=== PATIENT | male | born 1955 | race Caucasian/White ===

== ENCOUNTER 2020-04-29 14:40 | Emergency (ER) | payer MEDICARE, OTHER ==
[~2020-04-29] VITALS: Ht 182.9 cm; Wt 113.0 kg
--- NOTE | 2020-04-29 15:27 | RAD ---
EXAM: CHEST ONE VIEW. HISTORY: Syncope. COMPARISON: 01/10/2009. FINDINGS: A frontal view of the chest is obtained. There are no confluent infiltrates. There is no pneumothorax or pleural effusion. The heart is not en larged. Suture anchors are noted in the right humeral head. IMPRESSION: 1. No confluent infiltrates. Electronically signed by: Vivek Mahan MD (04/29/2020 3:24 PM) [id number]
[2020-04-29 15:29] LABS: BASO % 1 % (0-3); EOS # 0.2 x10^3/uL (0.0-0.7); EOS % 6 % (0-3); HEMATOCRIT 41.1 % (39.0-53.0); HEMOGLOBIN 13.4 g/dL (13.0-17.5); LYMPH # 0.8 x10^3/uL (1.0-4.8); LYMPH % 23 % (24-48); MEAN CORPUSCULAR HEMOGLOBIN 30 pg (25-35); MEAN CORPUSCULAR HGB CONC 33 g/dL (31-37); MEAN CORPUSCULAR VOLUME 92 fL (79-100); MONO # 0.6 x10^3/uL (0.0-1.1); MONO % 17 % (0-9); NEUT # 1.9 x10^3uL (1.8-7.7); NEUT % 53 % (31-73); PLATELET COUNT 228 x10^3/uL (140-400); RED BLOOD COUNT 4.47 x10^6/uL (4.30-5.70); RED CELL DISTRIBUTION WIDTH 14.3 % (11.5-14.5); WHITE BLOOD COUNT 3.5 x10^3/uL (4.0-11.0)
[2020-04-29 15:31] VITALS: BP 144/73
[2020-04-29 15:34] LABS: GFR 74.8
--- NOTE | 2020-04-29 15:53 | RAD ---
EXAMINATION: CT HEAD AND C-SPINE WO CLINICAL HISTORY: Syncope, fall, on blood thinners TECHNIQUE: Serial axial images without IV contrast were obtained from the vertex to the foramen magnum. CT of the cervical spine without IV contrast. Spiral, high resolution axial images were obtained from the skull base to the cervicothoracic junction with sagittal and coronal planar reconstructions. CT Dose Reduction Employed: One or more of the following individualized dose reduction techniques wer e utilized for this examination: 1. Automated exposure control 2. Adjustment of the mA and/or kV ac cording to patient size 3. Use of iterative reconstruction technique. COMPARISON: None FINDINGS: BRAIN: Acute Change: No evidence of an acute contusion or other acute parenchymal process. Hemorrhage: No evidence of acute intracranial hemorrhage. Mass Lesion/Mass Effect: No evidence of intracranial mass or extraaxial fluid collection. No signific ant mass effect. Chronic Change: None apparent. Atherosclerotic calcification of the bilateral carotid siphons. Parenchyma: No significant volume loss. Parenchyma otherwise within normal limits for age. Ventricles: Ventricles within normal limits for age. Paranasal Sinuses and Skull Base: Changes compatible with chronic right maxillary sinusitis, incomple tely visualized. Mild left maxillary mucoperiosteal thickening. No evidence of acute calvarial fractu re. C-SPINE: Normal anatomic alignment. No evidence of acute fracture or spondylolisthesis. Multilevel degenerative disc disease, greatest at C5-6 and C6-7. Multilevel moderate to severe facet arthropathy. Left greater than right multilevel moderate to severe neural foraminal narrowing, greate st at C2-3 on the right and C3-4 and C4-5 on the left. No evidence of significant osseous spinal sten osis. No prevertebral soft tissue swelling. IMPRESSION: No evidence of acute intracranial abnormality. No evidence of acute osseous abnormality involving the cervical spine. Multilevel cervical degenerative disc disease, facet arthropathy, and neural foraminal narrowing as d escribed. Electronically signed by: Frank Alvarado DO (04/29/2020 3:51 PM) [id number]
[2020-04-29 15:54] LABS: POTASSIUM 5.4 mmol/L (3.5-5.1)
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
--- NOTE | 2020-04-29 16:17 | EKG ---
[address] [address] Test Date: 2020-04-29 Test Time: 15:22:10 Pat Name: CYN GR Department: Room: Gender: M High [employer] Boiler: MCKINLEY : 1955 Requested By: JEANNE LEON Order Number: [id number] Reading MD: Measurements Intervals [place] Rate: 75 P: 35 MA: 210 QRS: -8 QRSD: 126 T: 123 QT: 418 QTc: 470 Interpretive Statements SINUS RHYTHM LEFT ATRIAL ABNORMALITY LEFTWARD AXIS NON SPECIFIC INTRAVENTRICULAR BLOCK ABNORMAL ECG RI6.02 No previous ECG available for comparison
[2020-04-29 17:17] LABS: BILIRUBIN,URINE NEG (NEG); CLARITY,URINE CLOUDY; COLOR,URINE YELLOW; GLUCOSE,URINE NEG (NEG)
[2020-04-29 17:18] LABS: NITRITE,URINE NEG (NEG); UROBILINOGEN,URINE 0.2 mg/dL (0.2 mg/dL)
[2020-04-29 17:19] LABS: BACTERIA,URINE FEW /HPF (0-FEW); RBC,URINE >40 /HPF (0-2); SQUAMOUS EPITHELIAL CELL,UR OCC /LPF
== END 2020-04-29 17:35 ==
LOC: ER 14:40
DX: S06.9X9A Unspecified intracranial injury with loss of consciousness of unspecified duration, initial encounter (principal); S51.011A Laceration without foreign body of right elbow, initial encounter; W22.01XA Walked into wall, initial encounter; Y93.89 Activity, other specified; Y92.89 Other specified places as the place of occurrence of the external cause; Y99.8 Other external cause status
CPT/HCPCS: 36415; 70450; 71045; 72125; 80048; 81001; 84484; 85025; 85610; 85730; 87086; 93005; 96374; 99285; J2060

== ENCOUNTER 2020-05-14 13:42 | Emergency (ER) | payer MEDICARE, OTHER ==
[~2020-05-14] VITALS: Ht 182.9 cm; Wt 113.0 kg
[2020-05-14] MEDS ORDERED: LIDOCAINE 2%/EPI 1:100,000 20 ML VIAL. IJ ONE (14:00)
[2020-05-14] MEDS ORDERED: HYDROcodone/APAP 5/325MG 1 TAB TABLET PO ONE (14:00)
--- NOTE | 2020-05-14 14:57 | RAD ---
Study: 1. XR LT TIBIA + FIBULA 2. XR KNEE 4 VIEWS WITH PATELLA_RT Indication: Laceration. Comparison: None. Findings: Right knee: Dorsal defect of the patella incidentally noted. Mild medial femorotibial compartment joint space miguel rowing. Patellar enthesophytes and small osteophytes. The patella remains normally located. Several l oose bodies at the suprapatellar recess. Heterogeneity along the anterior aspect of the patellar tendon as seen on the lateral view. Left tibia/fibula: Intact total knee arthroplasty. No acute tibia or fibula fracture is identified. Slight cortical regu larity along the dorsal aspect of the proximal fibular diaphysis appears chronic. Chronic foci of ossification at the knee injecting along the femoral tibial joint line and at the sup rapatellar recess. Vascular calcifications. Degenerative changes at the ankle. Plantar calcaneal spur . No retained radiopaque foreign body. Impression: Right knee: 1. No acute osseous abnormality. 2. Subtle heterogeneity along the anterior portion of the mid to lower patellar tendon could relate t o reported laceration. No patellar malpositioning to suggest full-thickness disruption. 3. Degenerative findings as above. Left tibia/fibula: 1. No acute osseous abnormality. 2. Degenerative findings as above. Electronically signed by: KEENA WALTER MD (05/14/2020 2:54 PM) [facility]
--- NOTE | 2020-05-14 15:08 | PHYS DOC ---
Past History Past Medical History: Cancer, Other Additional Past Medical Histor: Prostate CA, s/p prostatectomy. Abdominal Aortic Aneurysm Alcohol Use: Rarely Adult General Chief Complaint Chief Complaint: LOWEREXTREMITY INJURY HPI HPI Patient is a 64-year-old male patient presenting to the ED today with right knee laceration and left harman laceration. Patient states he was cutting a tree to build a fence post when a tree branch kicked back and the chainsaw he was using cut him. Review of Systems Review of Systems Constitutional: Denies fever or chills [] Musculoskeletal: Denies back pain or joint pain [] Integument: Reports laceration to the right knee and left harman Neurologic: Denies headache, focal weakness or sensory changes [] All other systems were reviewed and found to be within normal limits, except as documented in this note. Current Medications Current Medications Current Medications Medications (Trade) Dose Ordered Sig/Saul Start Time Stop Time Status Last Admin Dose Admin Acetaminophen/ Hydrocodone Bitart (Lortab 5/325) 2 tab 1X ONCE 05/14/20 14:00 05/14/20 14:01 DC 05/14/20 14:31 2 TAB Lidocaine/ Epinephrine (Xylocaine 2%-Epi 1:100,000) 40 ml 1X ONCE 05/14/20 14:00 05/14/20 14:01 DC Allergies Allergies Allergies Coded Allergies Type Severity Reaction Last Updated Verified No Known Drug Allergies 04/29/20 No Physical Exam Physical Exam Constitutional: Well developed, well nourished, no acute distress, non-toxic appearance. [] Skin: Right anterior knee over the patella has a laceration approximately 5 x 0.3 cm. There is no obvious tendon involvement. The patella is not visible. Patient able to move the right knee including flexion and extension. Patient able to flex and extend the right toes. +2 right pedal pulse. Left harman with a laceration 7.5 x 1.5 cm. There is no tendon involvement. Patient able to move the right foot and right lower extremity with no difficulties. +2 right pedal pulse, cap refill less than 2 seconds to the right toes. Sensation intact bilateral lower extremities Back: No tenderness, no CVA tenderness. [] Extremities: No tenderness, no cyanosis, no clubbing, ROM intact, no edema. [] Neurologic: Alert and oriented X 3, normal motor function, normal sensory function, no focal deficits noted. [] Psychologic: Affect normal, judgement normal, mood normal. [] Current Patient Data Vital Signs Vital Signs Date Time Temp Pulse Resp B/P (MAP) Pulse Ox O2 Delivery O2 Flow Rate FiO2 05/14/20 14:31 19 EKG EKG [] Radiology/Procedures Radiology/Procedures []PROCEDURE: TIBIA FIBULA LEFT Study: 1. XR LT TIBIA + FIBULA 2. XR KNEE 4 VIEWS WITH PATELLA_RT Indication: Laceration. Comparison: None. Findings: Right knee: Dorsal defect of the patella incidentally noted. Mild medial femorotibial compartment joint space narrowing. Patellar enthesophytes and small osteophytes. The patella remains normally located. Several loose bodies at the suprapatellar recess. Heterogeneity along the anterior aspect of the patellar tendon as seen on the lateral view. Left tibia/fibula: Intact total knee arthroplasty. No acute tibia or fibula fracture is identified. Slight cortical regularity along the dorsal aspect of the proximal fibular diaphysis appears chronic. Chronic foci of ossification at the knee injecting along the femoral tibial joint line and at the suprapatellar recess. Vascular calcifications. Degenerative changes at the ankle. Plantar calcaneal spur. No retained radiopaque foreign body. Impression: Right knee: 1. No acute osseous abnormality. 2. Subtle heterogeneity along the anterior portion of the mid to lower patellar tendon could relate to reported laceration. No patellar malpositioning to suggest full-thickness disruption. 3. Degenerative findings as above. Left tibia/fibula: 1. No acute osseous abnormality. 2. Degenerative findings as above. Electronically signed by: KEENA WALTER MD (05/14/2020 2:54 PM) [facility] DICTATED AND SIGNED BY: KEENA WALTER MD DATE: 05/14/20 1448 CC: EMERGENCY,DEPARTMENT; GABRIELA CASSIDY MD; MERLYN RODRIGUEZ COMPENSATION COORDINATOR ~MTH0 0 Laceration/Wound Repair Wound Location: right knee and left harman Wound's Depth, Shape: horizontal Wound Length (cm): Left harman with a laceration 7.5 x 1.5 cm and right knee 5X0.3cm Wound Explored: clean Irrigated w/ Saline (ccs): 1000 for both lacerations Betadine Prep?: Y Anesthesia: Lidocaine with epinephrine Volume Anesthetic (ccs): 30 ml for total lacerations Wound Repaired With: Left harman laceration was closed as follows. Internal laceration was closed with 10 interrupted sutures using 3.0 Vicryl, external laceration was closed with 15 soo. Right knee laceration was closed with 11 soo. Progress : Wound was covered with nonstick dressings Heart Score Risk Factors: Risk Factors: DM, Current or recent (<one month) smoker, HTN, HLP, family history of CAD, obesity. Risk Scores: Risk Factors: DM, Current or recent (<one month) smoker, HTN, HLP, family history of CAD, obesity. Course & Med Decision Making Course & Med Decision Making Pertinent Labs and Imaging studies reviewed. (See chart for details) This is a 64-year-old male patient presented to the ED today with right knee and left harman lacerations. Right knee x-rays negative for any acute findings, left tib-fib x-rays are negative for any acute findings. Lacerations were closed as noted in procedures, wound care instructions and return precautions were provided to patient. Antibiotics prescription provided. Tetanus is up-to-date Dragon Disclaimer Dragon Disclaimer This electronic medical record was generated, in whole or in part, using a voice recognition dictation system. Departure Departure: Impression: Primary Impression: Laceration of right knee Additional Impression: Laceration of left lower extremity Disposition: 01 DC HOME SELF CARE/HOMELESS Condition: STABLE Referrals: GABRIELA CASSIDY MD (PCP) Follow-up in 10 days for staple removal Patient Instructions: Laceration Care, Adult, [id number] Additional Instructions: Please keep your laceration sites clean and dry but you can shower. Please apply Neosporin to the laceration sites twice a day. Please take the prescribed antibiotics until completed. Take the pain medicine as needed for pain. Return to the emergency room at any point you have signs of infection including yellow drainage, redness or warmth of the laceration site. Scripts Hydrocodone Bit/Acetaminophen (HYDROCODONE-APAP 5-325 ) 1 Each Tablet 1 TAB PO PRN Q6HRS PRN for PAIN, #20 TAB 0 Refills Prov: MERLYN RODRIGUEZ COMPENSATION COORDINATOR 05/14/20 Cephalexin (CEPHALEXIN) 500 Mg Tablet 1 TAB PO TID, #30 TAB Prov: MERLYN RODRIGUEZ COMPENSATION COORDINATOR 05/14/20 Problem Qualifiers Primary Impression: Laceration of right knee Encounter type: initial encounter Qualified Codes: S81.011A - Laceration without foreign body, right knee, initial encounter Additional Impression: Laceration of left lower extremity Encounter type: initial encounter Qualified Codes: S81.812A - Laceration without foreign body, left lower leg, initial encounter MERLYN RODRIGUEZ COMPENSATION COORDINATOR May 14, 2020 15:08
[2020-05-14 15:41] VITALS: BP 143/82
[2020-05-14] MEDS ORDERED: HYDR-2155 PO (16:12)
[2020-05-14] MEDS ORDERED: CEPH500T PO (16:12)
== END 2020-05-14 16:30 | disposition home or self-care (01) ==
LOC: ER 13:42
DX: S81.011A Laceration without foreign body, right knee, initial encounter (principal); S81.812A Laceration without foreign body, left lower leg, initial encounter; W29.3XXA Contact with powered garden and outdoor hand tools and machinery, initial encounter; Y93.89 Activity, other specified; Y92.89 Other specified places as the place of occurrence of the external cause; Y99.8 Other external cause status
CPT/HCPCS: 12004; 73564; 73590; 99284